=== PATIENT | male | born 1980 | race Caucasian/White ===

== ENCOUNTER 2016-10-20 19:44 | Emergency (ER) | payer BC, OTHER ==
[2016-10-20 19:59] VITALS: BP 129/79
[2016-10-20] MEDS ORDERED: GI Cocktail Oral Solution 30 ML PO ONE (20:02)
[2016-10-20 20:41] LABS: CHLORIDE,CL 105 mmol/L (101-111); SODIUM,NA 143 mmol/L (135-145)
--- NOTE | 2016-10-20 21:15 | EDM.PDOC ---
ED HPI GENERAL MEDICAL PROBLEM - General Chief Complaint: Abdominal Pain Stated Complaint: HEARTBURN, [id number] Time Seen by Provider: 10/20/16 20:00 Source of Information: Reports: Patient - History of Present Illness INITIAL COMMENTS - FREE TEXT/NARRATIVE: epigastric and RUQ pain increasing frequency past month, tonight nothing relieve discomfort, alkaseltzer, backing soda or tums. Hx Crohns, no heartburn until after surgery and palaced on medications Onset: Today Duration: Hour(s): Location: Reports: Abdomen Epigastric Pain Score (Numeric/FACES): 6 - Related Data Allergies Allergy/AdvReac Type Severity Reaction Status Date / Time No Known Allergies Allergy Verified 10/20/16 19:59 Past Medical History Gastrointestinal History: Reports: Other (See Below) Other Gastrointestinal History: Crohn's disease Social & Family History - Tobacco Use Smoking Status *Q: Never Smoker Second Hand Smoke Exposure: No - Caffeine Use Caffeine Use: Reports: Soda - Recreational Drug Use Recreational Drug Use: No ED ROS GENERAL - Review of Systems Review Of Systems: See Below Constitutional: Reports: No Symptoms HEENT: Reports: No Symptoms Respiratory: Reports: No Symptoms Cardiovascular: Reports: No Symptoms GI/Abdominal: Reports: Abdominal Pain, Decreased Appetite, Nausea. Denies: Distension, Melena, Vomiting Musculoskeletal: Reports: No Symptoms Skin: Reports: No Symptoms Neurological: Reports: No Symptoms ED EXAM, GI/ABD - Physical Exam Exam: See Below Exam Limited By: No Limitations General Appearance: Alert, No Apparent Distress Eyes: Bilateral: EOMI Ears: Normal External Exam Nose: Normal Inspection Throat/Mouth: Normal Inspection Head: Atraumatic, Normocephalic Neck: Normal Inspection Respiratory/Chest: No Respiratory Distress, Lungs Clear, Normal Breath Sounds Cardiovascular: Normal Peripheral Pulses, Regular Rate, Rhythm GI/Abdominal: Normal Bowel Sounds, Soft, Tenderness (mid epigastric), Rigidity. No: Distention, Guarding, Psoas Sign Back Exam: Normal Inspection Extremities: Normal Inspection Neurological: Alert, Oriented, Normal Cognition Psychiatric: Normal Affect, Anxious Skin Exam: Warm, Dry, Intact, Normal Color Course - Vital Signs Last Recorded V/S: Last Vital Signs Temp 97.6 F 10/20/16 19:50 Pulse 71 10/20/16 19:50 Resp 21 H 10/20/16 19:50 BP 129/79 10/20/16 19:50 Pulse Ox 100 10/20/16 19:50 - Orders/Labs/Meds Labs: Laboratory Tests 10/20/16 10/20/16 10/20/16 Range/Units 20:15 20:15 20:15 WBC 7.0 (5.0-10.0) 10^3/uL RBC 4.64 (4.6-6.2) 10^6/uL Hgb 12.8 L (14.0-18.0) g/dL Hct 37.7 L (40.0-54.0) % MCV 81.3 (80-100) fL MCH 27.6 (27.0-34.0) pg MCHC 34.0 (33.0-35.0) g/dL Plt Count 212 (150-450) 10^3/uL Neut % (Auto) 82.0 H (42.2-75.2) % Lymph % (Auto) 7.9 L (20.5-50.1) % [place] % (Auto) 9.3 H (2-8) % Eos % (Auto) 0.7 L (1.0-3.0) % Baso % (Auto) 0.1 (0.0-1.0) % Sodium 143 (135-145) mmol/L Potassium 4.3 (3.6-5.0) mmol/L Chloride 105 (101-111) mmol/L Carbon Dioxide 28.0 (21.0-31.0) mmol/L Anion Gap 14.3 BUN 13 (7-18) mg/dL Creatinine 1.0 (0.6-1.3) mg/dL Est Cr Clr Drug Dosing 107.47 mL/min Estimated GFR (MDRD) > 60 BUN/Creatinine Ratio 13.00 Glucose 105 (74-105) mg/dL Calcium 9.4 (8.4-10.2) mg/dl Total Bilirubin 2.0 H (0.2-1.0) mg/dL AST 136 H (10-42) IU/L ALT 56 (10-60) IU/L Alkaline Phosphatase 91 (42-121) IU/L C-Reactive Protein < 0.5 (0.0-1.3) mg/dL Total Protein 7.5 (6.7-8.2) g/dl Albumin 4.4 (3.2-5.5) g/dl Globulin 3.1 Albumin/Globulin Ratio 1.42 Amylase 76 (28-100) U/L Meds: Medications Discontinued Medications Generic Name Dose Route Start Last Admin Trade Name Bina PRN Reason Stop Dose Admin Al Hydroxide/Mg Hydroxide 30 ml 10/20/16 20:02 10/20/16 20:11 Gi Cocktail PO 10/20/16 20:03 30 ml ONETIME ONE Administration Sucralfate Confirm 10/20/16 21:28 10/20/16 21:54 Carafate Administered 10/20/16 21:29 Not Given Dose 2 gm .ROUTE .STK-MED ONE Sucralfate 2 gm 10/20/16 21:28 Carafate PO 10/20/16 21:29 .STK-MED ONE - Re-Assessments/Exams Free Text/Narrative Re-Assessment/Exam: 10/25/16 04:33 GI cocktail with improvement Departure - Departure Time of Disposition: 21:24 Disposition: Home, Self-Care 01 Condition: Good Clinical Impression: Peptic ulcer - Discharge Information Instructions: Peptic Ulcer, Food Choices for Peptic Ulcer Disease Forms: ED Department Discharge Additional Instructions: carafate 1 gm 4 times dily 1/2 hour prior to meals and bed Omprazole twice daily for one week then decrease to one time every am follow up in clinic with PCP, next week urgent follow up if noting blood in stools orvomiting blood bland light diet
[2016-10-20] MEDS ORDERED: Sucralfate 1 GM Tab ONE (21:28)
[2016-10-20] MEDS ORDERED: Sucralfate 1 GM Tab PO ONE (21:28)
== END 2016-10-20 21:34 | disposition home or self-care (01) ==
LOC: DL.ED 19:44
DX: K27.9 Peptic ulcer, site unspecified, unspecified as acute or chronic, without hemorrhage or perforation (principal); K50.90 Crohn's disease, unspecified, without complications
CPT/HCPCS: 36415; 80053; 82150; 85025; 86140; 99284; A9270

== ENCOUNTER 2017-08-04 14:11 | Emergency (ER) | payer BC, OTHER ==
[2017-08-04 14:18] VITALS: BP 132/72
[2017-08-04] MEDS ORDERED: Lidocaine 1% 30 ML SDV INJECT ONE (14:23)
[2017-08-04] MEDS ORDERED: Morphine 2 MG/ML Syringe IVPUSH ONE (14:23)
[2017-08-04] MEDS ORDERED: Morphine 2 MG/ML Syringe IM ONE (14:35)
--- NOTE | 2017-08-04 14:49 | CR ---
Clinical history: 36-year-old male "cut" finger. 3 views of the left hand confirm the volar laceration beneath the middle phalanx left index (second) finger without sign of underlying fracture or dislocation. Ringlike foreign body encircling the proximal phalanx fourth finger. No other foreign bodies and no sign of left hand or wrist fracture/dislocation.
[2017-08-04] MEDS ORDERED: Bacitracin Oint 1 GM U/D Packet TOP ONE (17:16)
[2017-08-04] MEDS ORDERED: Diphtheria,Pertussis(Acell),Tetanus Vaccine 0.5 ML SDV IM ONE (17:18)
--- NOTE | 2017-08-04 17:22 | EDM.PDOC ---
ED HPI GENERAL MEDICAL PROBLEM - General Chief Complaint: Upper Extremity Injury/Pain Stated Complaint: LEFT INDEX FINGER Time Seen by Provider: 08/04/17 14:30 Source of Information: Reports: Patient, RN, RN Notes Reviewed History Limitations: Reports: No Limitations - History of Present Illness INITIAL COMMENTS - FREE TEXT/NARRATIVE: Pt presents to the ER with laceration/crushing of the left second finger. [place] Patient states the finger was caught between springs and rollers for quite some time and they were unable to get the finger out. Patient is unsure of when his last tetanus was. Pt c/o severe pain to the finger. Onset: Today, Sudden Duration: Constant Location: Reports: Upper Extremity, Left Quality: Reports: Stabbing, Throbbing Improves with: Reports: None Worsens with: Reports: None Associated Symptoms: Reports: No Other Symptoms Left 2-Index finger Pain Score (Numeric/FACES): 10 - Related Data Allergies Allergy/AdvReac Type Severity Reaction Status Date / Time No Known Allergies Allergy Verified 08/04/17 14:15 Home Meds: Home Meds Omeprazole 40 mg PO DAILY 08/04/17 [History] azaTHIOprine [Imuran] 50 mg PO DAILY 08/04/17 [History] Past Medical History Gastrointestinal History: Reports: Other (See Below) Other Gastrointestinal History: Crohn's disease Social & Family History - Family History Family Medical History: Noncontributory - Tobacco Use Smoking Status *Q: Never Smoker Second Hand Smoke Exposure: No - Caffeine Use Caffeine Use: Reports: Soda - Recreational Drug Use Recreational Drug Use: No Review of Systems - Review of Systems Review Of Systems: ROS reveals no pertinent complaints other than HPI. ED EXAM, GENERAL - Physical Exam Exam: See Below Exam Limited By: No Limitations General Appearance: Alert, WD/WN, Mild Distress Eye Exam: Bilateral Eye: EOMI, Normal Inspection Ears: Normal External Exam, Hearing Grossly Normal Nose: Normal Inspection Throat/Mouth: Normal Inspection, Normal Voice, No Airway Compromise Head: Atraumatic, Normocephalic Neck: Normal Inspection, Supple, Non-Tender, Full Range of Motion Respiratory/Chest: No Respiratory Distress, Lungs Clear, Normal Breath Sounds, No Accessory Muscle Use, Chest Non-Tender Cardiovascular: Normal Peripheral Pulses, Regular Rate, Rhythm, No Edema, No Gallop, No JVD, No Murmur, No Rub Peripheral Pulses: 2+: Radial (L), Radial (R) GI/Abdominal: Normal Bowel Sounds, Soft, Non-Tender (Male) Exam: Deferred Rectal (Males) Exam: Deferred Back Exam: Normal Inspection, Full Range of Motion Extremities: Joint Swelling (Phalangeal joints of the left second finger), Limited Range of Motion (left second finger) Neurological: Alert, Oriented, CN II-XII Intact, Normal Cognition, Normal Gait, Normal Reflexes, No Motor/Sensory Deficits, Other (Some numbness and tingling to the left second finger) Psychiatric: Normal Affect, Normal Mood Skin Exam: Warm, Dry, Other (twisting laceration to the left second finger. 6cm x 2cm in various directions. ) Lymphatic: No Adenopathy ED TRAUMA EXTREMITY PROCEDURES - Laceration/Wound Repair Left Finger Lac/Wound Length In cm: 8 Appearance: Muscle, Irregular, Mildly Contaminated Distal NVT: Neuro & Vascular Intact, Other (Good CMS, some numbness and tingling to the finger) Anesthetic Type: Local Local Anesthesia - Lidocaine (Xylocaine): 1% Plain Local Anesthetic Volume: Other (19cc) Skin Prep: Chlorhexidine (Hibiciens) Exploration/Debridement/Repair: Wound Explored, In a Bloodless Field, Explored to Base, Moderate Debridement, Minimally Undermined, Foreign Material Removed, Wound Margins Revised Closed With: Sutures Suture Size: 4-0 # of Sutures: 17 Suture Type: Nylon, Interrupted Drain Placement: No Sterile Dressing Applied: Provider Tetanus Status Addressed: Yes Complications: No Course - Vital Signs Last Recorded V/S: Last Vital Signs Temp 97.1 F 08/04/17 14:16 Pulse 77 08/04/17 14:16 Resp 18 08/04/17 14:16 BP 132/72 08/04/17 14:16 Pulse Ox 100 08/04/17 14:16 - Orders/Labs/Meds Meds: Medications Discontinued Medications Generic Name Dose Route Start Last Admin Trade Name Freq PRN Reason Stop Dose Admin Bacitracin 1 dose 08/04/17 17:16 08/04/17 17:23 Bacitracin Oint 1 Gm TOP 08/04/17 17:17 1 dose ONETIME ONE Administration Diphtheria/Tetanus/Acell Pertussis 0.5 ml 08/04/17 17:18 08/04/17 17:23 Adacel IM 08/04/17 17:19 0.5 ml .ONCE ONE Administration Lidocaine HCl 30 ml 08/04/17 14:23 08/04/17 14:28 Xylocaine-Mpf 1% INJECT 08/04/17 14:24 30 ml ONETIME ONE Administration Morphine Sulfate 2 mg 08/04/17 14:23 Morphine IVPUSH 08/04/17 14:24 ONETIME ONE Morphine Sulfate 2 mg 08/04/17 14:35 08/04/17 14:44 Morphine IM 08/04/17 14:36 2 mg ONETIME ONE Administration Departure - Departure Time of Disposition: 17:21 Disposition: Home, Self-Care 01 Condition: Fair Clinical Impression: Laceration - Discharge Information Instructions: Laceration Care, Adult, [id number], Stitches, [place], or Adhesive Wound Closure, [id number] Forms: ED Department Discharge Additional Instructions: Have sutures removed in 7-10 days. RX: Keflex Follow up with your primary care facility Keep wound clean and dry
== END 2017-08-04 17:35 | disposition home or self-care (01) ==
LOC: DL.ED 14:11
DX: S61.211A Laceration without foreign body of left index finger without damage to nail, initial encounter (principal); Z79.899 Other long term (current) drug therapy; W23.1XXA Caught, crushed, jammed, or pinched between stationary objects, initial encounter; Y92.79 Other farm location as the place of occurrence of the external cause
CPT/HCPCS: 12004; 73140; 90471; 90715; 96372; 99283; J2270; 12053